=== PATIENT | female | born 2000 | race American Indian/Alaskan Native ===

== ENCOUNTER 2022-11-17 20:18 | Emergency (ER) | payer OTHER, MEDICAID, SELFPAY ==
[2022-11-17 20:33] VITALS: BP 133/98; PULSE 96; RESP 18; TEMP 37; O2SAT 100; BMI 35.2
--- NOTE | 2022-11-17 20:39 | DI.CT.S_ITS ---
PROCEDURE: CT SOFT TISSUE NECK W CON INDICATIONS: sore throat, swelling pain, known strep much worse, can't swallow TECHNIQUE: After the administration of intravenous contrast, 3.0 mm axial sections acquired from the sella to the aortic arch. Additional oblique axial 3.0 mm sections acquired through the pharynx. 3 mm thick coronal and sagittal reformats were generated. For radiation dose reduction, the following was used: automated exposure control. COMPARISON: None. FINDINGS: Image quality: Excellent. Lymph nodes: No enlarged lymph nodes seen throughout the neck. Vessels: Visualized vasculature appears patent. Neck spaces: The oropharynx, nasopharynx, and pharynx demonstrate no mucosal lesions. The vocal cords, false vocal cords, pyriform sinuses, epiglottis, vallecula, and tongue base all appear normal. Extramucosal spaces appear unremarkable except for symmetric prominence of the tonsillar pillars bilaterally, without adjacent or internal abscess. Glands: The parotid and submandibular glands appear normal. Thyroid gland appears normal. Miscellaneous: Visualized brain and orbits appear normal. Lung apices appear clear. Superficial soft tissues appear normal. Bones: No suspicious bony lesions. Visualized sinuses and mastoids appear unremarkable. IMPRESSION: Inflammatory enlargement of the tonsillar pillars bilaterally without visualized evidence of abscess formation or adenopathy. Dictated by: Luis Armando Jose M.D. on 11/17/2022 at 21:24 Approved by: Luis Armando Jose M.D. on 11/17/2022 at 21:26
--- NOTE | 2022-11-17 20:49 | ED.GENADULT ---
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 She had been diagnosed with strep a few days ago and has been on penicillin, however she presents today because of increasing throat pain and swelling along with voice change, difficulty swallowing and even trouble breathing. She denies any fever but has had some chills. She feels somewhat dizzy and lightheaded and states she is not been able to eat and drink much. She denies any chance of being Related Data Previous Rx's Medication Instructions Recorded ketorolac 10 mg tablet 10 mg PO Q6H PRN pain #14 tabs 11/17/22 Allergies Allergy/AdvReac Type Severity Reaction Status Date / Time No Known Drug Allergies Allergy Verified 11/17/22 20:33 Review of Systems Review of Systems Narrative: GENERAL: See HPI HEENT: See HPI RESPIRATORY: See HPI CARDIOVASCULAR: Denies chest pain, palpitations, orthopnea, edema, GASTROINTESTINAL: Denies nausea, vomiting, abdominal pain, diarrhea, constipation, melena. : Denies dysuria, frequency, incontinence, hematuria, urinary retention. MUSCULOSKELETAL: denies weakness, joint pain, or bony pain SKIN: Denies rash, skin lesions, or other NEUROLOGIC: Denies weakness, headache, numbness, change in speech, confusion, seizures, incoordination. PSYCHIATRIC: No concerning psychosocial issues. 12 point review of systems is negative except for those stated above Patient History Social History Smoking Status: Current every day smoker Smoking Status: Current every day smoker tobacco type: vaping Substance Use Type: marijuana Exam Narrative Exam Narrative: GENERAL: [21] year old patient appears stated age. Well-developed patient, in mild distress. Some voice change noted, somewhat muffled HEAD: Atraumatic. Normocephalic. EYES: Pupils equal round and reactive. Extraocular motions intact. No scleral icterus. No injection or drainage. ENT: Nose without bleeding, purulent drainage. Large, erythematous tonsils are touching, with some exudate, airway is patent, patient guarding airway and controlling secretions, tender anterior lymphadenopathy, no pointed uvula or obvious sign of abscess NECK: Trachea midline. Non tender CARDIOVASCULAR: Regular rate and rhythm without murmurs, gallops, or rubs. RESPIRATORY: Clear to auscultation. Breath sounds equal bilaterally. No wheezes, rales, or rhonchi. GASTROINTESTINAL: Abdomen soft, non-tender, nondistended. EXTREMITIES: No edema or joint tenderness. BACK: Nontender without deformity or crepitance. No flank tenderness. NEURO: AOx3. SKIN: No rash or erythema of visible areas Initial Vital Signs Initial Vital Signs: Vital Signs Temperature 98.6 F 11/17/22 20:33 Pulse Rate 96 H 11/17/22 20:33 Respiratory Rate 18 11/17/22 20:33 Blood Pressure 133/98 H 11/17/22 20:33 Pulse Oximetry 100 11/17/22 20:33 Oxygen Delivery Method Room Air 11/17/22 20:33 Course Orders Ordered: ED Orders 11/17/22 20:39 CT soft tissue neck w con Stat 11/17/22 20:45 BMP [Basic Metabolic Panel] Stat CBC Auto Diff [Complete Blood Count AUTO DIFF] Stat Lactate (Lactic Acid) Stat Monotest Stat 11/17/22 21:19 Blood Culture Stat Discontinued Medications Lactated Ringer's (Lactated Ringers) 1,000 mls @ 1,000 mls/hr IV BOLUS ONE Stop: 11/17/22 21:38 Last Infusion: 11/17/22 22:20 Dose: 0 mls/hr Documented By: Admin: 11/17/22 21:09 Dose: 1,000 mls/hr Documented By: ARELI Dexamethasone 20 mg/ Sodium (Chloride) 52 mls @ 208 mls/hr IV NOW ONE Stop: 11/17/22 20:40 Last Infusion: 11/17/22 22:07 Dose: 0 mls/hr Documented By: Admin: 11/17/22 21:03 Dose: 208 mls/hr Documented By: ARELI Ampicillin Sodium/Sulbactam (Sodium 3 gm/ Sodium Chloride) 100 mls @ 200 mls/hr IV NOW ONE Stop: 11/17/22 20:40 Last Infusion: 11/17/22 22:07 Dose: 0 mls/hr Documented By: Admin: 11/17/22 21:08 Dose: 200 mls/hr Documented By: ARELI Ketorolac Tromethamine (Ketorolac 30 Mg/Ml Vial) 15 mg IV NOW ONE Stop: 11/17/22 20:40 Last Admin: 11/17/22 21:06 Dose: 15 mg Documented By: ARELI Vital Signs Vital signs: Vital Signs - 8 hr 11/17/22 20:33 11/17/22 22:29 Temperature 98.6 F Pulse Rate 96 H 83 Respiratory Rate 18 16 Blood Pressure 133/98 H 127/76 Pulse Oximetry 100 99 Oxygen Delivery Method Room Air Room Air Medical Decision Making Lab Data 11/17/22 20:45 11/17/22 20:45 Labs: Lab Results 11/17/22 11/17/22 11/17/22 Range/Units 20:45 20:45 20:45 WBC 8.2 (4.5-11.0) X10^3/uL RBC 4.82 (4.0-5.2) X10^6/uL Hgb 11.8 L (12.0-16.0) g/dL Hct 35.3 L (36-46) % MCV 73.3 L (80-100) fL MCH 24.5 L (26-34) PG MCHC 33.4 (30-36) % RDW 14.3 (11.6-14.8) % Plt Count 406 H (150-400) X10^3/uL Neut % (Auto) 70.8 (50-75) % Lymph % (Auto) 18.7 L (25-40) % [place] % (Auto) 9.0 (3-14) % Eos % (Auto) 0.5 L (2-4) % Baso % (Auto) 1.0 (0-2) % Neut # (Auto) 5800 (7579-2347) /uL Lymph # (Auto) 1500 (3087-6377) /uL [place] # (Auto) 700 (0-900) /uL Eos # (Auto) 0 (0-450) /uL Baso # (Auto) 100 (0-100) /uL Sodium 136 L (137-145) mmol/L Potassium 3.8 (3.4-5.1) mmol/L Chloride 105 (98-107) mmol/L Carbon Dioxide 24 (22-32) mmol/L BUN 9 (7-17) mg/dL Creatinine 0.85 (0.52-1.04) mg/dL Estimated GFR > 60 (>60) mL/min BUN/Creatinine Ratio 10.6 (6-22) Glucose 95 (70-100) mg/dL Lactate 0.6 L (0.7-2.1) mmol/L Calcium 8.9 (8.4-10.2) mg/dL Monoscreen (Negative) 11/17/22 Range/Units 20:45 WBC (4.5-11.0) X10^3/uL RBC (4.0-5.2) X10^6/uL Hgb (12.0-16.0) g/dL Hct (36-46) % MCV (80-100) fL MCH (26-34) PG MCHC (30-36) % RDW (11.6-14.8) % Plt Count (150-400) X10^3/uL Neut % (Auto) (50-75) % Lymph % (Auto) (25-40) % [place] % (Auto) (3-14) % Eos % (Auto) (2-4) % Baso % (Auto) (0-2) % Neut # (Auto) (6643-2360) /uL Lymph # (Auto) (9435-6906) /uL [place] # (Auto) (0-900) /uL Eos # (Auto) (0-450) /uL Baso # (Auto) (0-100) /uL Sodium (137-145) mmol/L Potassium (3.4-5.1) mmol/L Chloride (98-107) mmol/L Carbon Dioxide (22-32) mmol/L BUN (7-17) mg/dL Creatinine (0.52-1.04) mg/dL Estimated GFR (>60) mL/min BUN/Creatinine Ratio (6-22) Glucose (70-100) mg/dL Lactate (0.7-2.1) mmol/L Calcium (8.4-10.2) mg/dL Monoscreen Negative (Negative) MDM Narrative Medical decision making narrative: CC: 21F with throat pain, trouble swallowing/breathing Complicating co-morbidities: known strep Data collected from: Patient Medical records reviewed: Prior notes reviewed in our EMR Differential considered, but not limited to: Strep pharyngitis, mononucleosis, abscess versus other Exam documented above, pertinent findings include: Heart rate regular, no labored breathing, controlling secretions. Large touching tonsils without obvious sign of abscess Lab Test results independently reviewed as above. Pertinent findings: No significant leukocytosis or left shift, subtle anemia, mono spot negative, electrolytes and lactate within normal Independently reviewed EKG as above Imaging studies independently reviewed: No abscess or airway occlusion Treatments: Fluids, Toradol, Decadron, Unasyn Re-evaluations: Patient feeling significant improvement Discussion: Patient with known strep pharyngitis feels like she is not getting better. She had been on a few days of penicillin with increasing pain. She is managing her airway and controlling secretions without difficulty. Labs are reassuring and alternate diagnoses such as mononucleosis versus others are considered but seem unlikely given history, physical and labs. Imaging shows no abscess or airway involvement. She is given fluids, steroids, anti-inflammatories and around of Unasyn. She is feeling much better at time of discharge, tolerating orals, no difficulty in breathing. We did discuss the possibility of switching her antibiotics but elected to hold off for now and encouraged close follow-up. She is encouraged to return for any difficulty breathing, swallowing, chest pain, shaking chills or other bothersome symptoms Disposition: see below, along with detailed discharge instructions that have been reviewed with patient as well as indications for ED re-evaluation and additional outpatient follow up Discharge Plan Departure Patient Disposition: Home Clinical Impression: Acute streptococcal pharyngitis Instructions: DI for Strep Throat Activity Restrictions/Additional Instructions: *You have been diagnosed with [strep pharyngitis, as we discussed your history and physical exam as well as labs and imaging are reassuring. There is no evidence of an alternate diagnosis such as mononucleosis or abscess noted on the imaging.] *What to do: *Please continue to take your regular medications as directed. [x ] New medication prescriptions sent to your pharmacy: [[facility] ] [ ] New medication written as a paper prescription [ ] No new medications given *Please follow up with your primary care provider in 2-3 days, call for an appointment. Let them know you were seen in the Emergency Department and that we ask that you be seen in follow up. We will electronically transmit a record of today's note if your PCP is in our system *If you do not have a primary care provider please contact the [facility] Resource line at [phone]. They will ask some questions about your medical history and help get you set up with a doctor in the community. *Return to Emergency Department if you should have any new, worsening or concerning symptoms, such as [fever greater than 101 F, shaking chills, worsening pain, persistent vomiting or other bothersome symptoms] Prescriptions: New ketorolac 10 mg tablet 10 mg PO Q6H PRN (Reason: pain) Qty: 14 0RF Referrals: Efrain Strong PA-C [Primary Care Provider] - Stand Alone Forms: Patient Portal/API
[2022-11-17 20:56] LABS: Add Manual Diff / Slide Review NO; Basophils Absolute Auto 100 /uL (0-100); Eosinophils Absolute Auto 0 /uL (0-450); Eosinophils Percent Auto 0.5 % (2-4); Hematocrit 35.3 % (36-46); Hemoglobin 11.8 g/dL (12.0-16.0); Lymphocytes Absolute Auto 1500 /uL (1100-4500); Lymphocytes Percent Auto 18.7 % (25-40); Mean Corpuscular HGB Conc 33.4 % (30-36); Mean Corpuscular Hemoglobin 24.5 PG (26-34); Mean Corpuscular Volume 73.3 fL (80-100); Monocytes Absolute Auto 700 /uL (0-900); Neutrophils Absolute Auto 5800 /uL (1500-7000); Neutrophils Percent Auto 70.8 % (50-75); Platelet Count 406 X10^3/uL (150-400); Red Blood Cell Count 4.82 X10^6/uL (4.0-5.2); Red Cell Distribution Width 14.3 % (11.6-14.8); White Blood Cell Count 8.2 X10^3/uL (4.5-11.0)
[2022-11-17 21:00] LABS: Monotest Negative (Negative)
[2022-11-17] MEDS: dexAMETHasone 20 MG in SODIUM CHLORIDE 0.9% 50 ML 208 MG IV (21:03)
[2022-11-17] MEDS: KETOROLAC 30 MG/ML VIAL 15 MG IV (21:06)
[2022-11-17] MEDS: AMPICILLIN/SULBACTAM 3 GM 3 GM in SODIUM CHLORIDE 0.9% 100 ML IV (21:08)
[2022-11-17] MEDS: LACTATED RINGERS 1,000 ML 1000 ML IV (21:09)
[2022-11-17 21:11] LABS: Lactate (Lactic Acid) 0.6 mmol/L (0.7-2.1)
[2022-11-17 21:12] LABS: BUN Creatinine Ratio 10.6 (6-22); Blood Urea Nitrogen 9 mg/dL (7-17); Calcium 8.9 mg/dL (8.4-10.2); Carbon Dioxide 24 mmol/L (22-32); Chloride 105 mmol/L (98-107); Estimated Glomerular Filt Rate > 60 mL/min (>60); Glucose 95 mg/dL (70-100); HEMOLYSIS < 15 (0-50); Potassium 3.8 mmol/L (3.4-5.1); Sodium 136 mmol/L (137-145)
[2022-11-17 22:29] VITALS: BP 127/76; PULSE 83; RESP 16; O2SAT 99
== END 2022-11-17 22:32 | disposition home or self-care (01) ==
PROVIDERS: Emergency Provider Emergency Medicine; PCP Physician Assistant
DX: J02.0 Streptococcal pharyngitis (principal)
CPT/HCPCS: 36415; 70491; 80048; 83605; 85025; 86318; 87040; 96365; 96368; 96375; 99284; J0295; J1100; J1885; Q9967

== ENCOUNTER → 2023-01-30 12:58 | Outpatient (CLI) | payer OTHER, SELFPAY ==
--- NOTE | 2023-01-30 | DI.US.S_ITS ---
PROCEDURE: US ABDOMEN COMPLETE INDICATIONS: ABDOMINAL PAIN TECHNIQUE: Real-time scanning was performed of the abdominal and retroperitoneal organs, with image documentation. COMPARISON: None. FINDINGS: Liver: Liver is normal in size. Mildly increased liver parenchymal echotexture is seen. Gallbladder: Multiple stones are noted within gallbladder lumen. A 7 millimeter stone is noted near nephric of gallbladder and is nonmobile. No gallbladder wall thickening or pericholecystic fluid. No sonographic Foley's sign. Biliary ducts: No intrahepatic biliary ductal dilatation. Extrahepatic bile duct is 5.8 mm in caliber. Normal biliary caliber is 6-7 mm or less, or 10 mm or less post-cholecystectomy. Spleen: Spleen is normal in size and homogeneous in echotexture. Pancreas: Visualized portions of the pancreas appear normal. Kidneys: Both kidneys are normal in size and echotexture. Right kidney measures 10.6 cm long; left kidney measures 11.4 cm long. No hydronephrosis or nephrolithiasis. No solid renal masses. Aorta: Visualized abdominal aorta is normal in caliber at less than 3 cm. Iliacs: Proximal common iliac arteries are normal in caliber at less than 2.5 cm. IVC: Intrahepatic inferior vena cava is patent. Miscellaneous: No free abdominal fluid. IMPRESSION: 1. Mild hepatic steatosis, no discrete hepatic lesion. 2. Cholelithiasis without sonographic evidence of acute cholecystitis. No biliary ductal dilatation. 3. Rest of the exam is unremarkable. Dictated by: Carlos Eduardo Varela M.D. on 01/30/2023 at 16:34 Approved by: Carlos Eduardo Varela M.D. on 01/30/2023 at 16:36
== END ==
PROVIDERS: PCP Physician Assistant; Referring Provider Registered Nurse; Visit Provider Registered Nurse
DX: K76.0 Fatty (change of) liver, not elsewhere classified (principal); K80.20 Calculus of gallbladder without cholecystitis without obstruction; R10.10 Upper abdominal pain, unspecified
CPT/HCPCS: 76700

== ENCOUNTER 2023-02-22 07:42 | Day surgery (SDC) | payer OTHER, SELFPAY ==
[2023-02-15 15:18] VITALS: BMI 34.3
[2023-02-22] VITALS (8 sets, daily range): BP systolic 121–150; BP diastolic 87–100; PULSE 24–66; RESP 15–22; TEMP 36.1–36.7; O2SAT 94–100; BMI 34.3
--- NOTE | 2023-02-22 | PATH_ITS ---
[facility] Accession Number: [id number] No. of containers..01 Tissue . 01 Material submitted: . gallbladder - GALLBLADDER AND CONTENTS . 01 Diagnosis: Gallbladder, Cholecystectomy: Chronic cholecystitis and cholelithiasis. Benign pericystic lymph node. Negative for dysplasia and neoplasia. MRV 03/06/2023 1649 Local . 01 Electronically signed: . Margot Diaz MD, Pathologist NPI- [id number] . 01 Gross description: . The specimen is received in formalin labeled with the patient's name, , and gallbladder and contents and consists of an intact gallbladder measuring 5.9 x 2.7 x 2.1 cm with an unremarkable external surface. The cystic duct margin is inked blue, and a pericystic lymph node candidate is identified measuring 0.6 cm in greatest dimension. The lumen contains green viscous bile and multiple pale yellow bosselated calculi measuring up to 0.6 cm in greatest dimension grossly obstructing the cystic duct. The mucosa is green and velvety with yellow discoloration and a small yellow polypoid structure, measuring 0.2 cm in greatest dimension. No additional lesions are identified. The fernando average 0.3 cm thick. Craps Manager sections to include the cystic duct margin, lymph node candidate, and full-thickness sections to include polyp are submitted in cassette A1. ([id number]) /[facility] 02/28/2023 1520 Local . 01 Pathologist provided ICD-10: K80.80 . 01 CPT . 833636 Specimen Comment: A courtesy copy of this report has been sent to [phone] Performed at: 01 [facility] [address] [place] [address] [address] [facility], [place], [place] [id number] MD Antonio Seymour MD Phone: [phone]
--- NOTE | 2023-02-22 07:44 | PM.PREOP ---
Pre-operative Note Interval Note History & Physical reviewed/Exam performed by Physician: Yes Changes to H&P: No
[2023-02-22] MEDS: LACTATED RINGERS 1,000 ML 100 ML IV ×2 (08:12→09:31)
--- NOTE | 2023-02-22 08:28 | SUR.OPER ---
Supine on padded OR bed, head on pillow, safety belt at thigh, left arm padded and tucked at side. Right arm secured on padded arm board <90 degrees abduction. Legs uncrossed. Padded footboard in place. Tape over blanket to secure lower legs.
[2023-02-22] MEDS: CEFAZOLIN 2 GM/100 ML PREMIX 100 ML IV (08:45)
[2023-02-22] MEDS: BUPIVACAINE 0.25% (PF) VIAL 30 ML INJ (09:06)
[2023-02-22] MEDS: OXYCODONE IR 5 MG TABLET PO (10:32)
[2023-02-22] MEDS: ONDANSETRON 4 MG/2 ML INJ IV (10:34)
--- NOTE | 2023-02-22 11:24 | SUR.PHASEII ---
No more pain medication administered before discharge due to drowsiness level. Patient able to sleep with current pain level 6/10.
--- NOTE | 2023-02-26 08:21 | PM.OP.1 ---
Operative Date/Time/Diagnoses Date of procedure: 02/22/23 Time of procedure: 08:21 Pre-op diagnosis: Biliary colic Post-op diagnosis: same Procedure & Clinicians Procedure: Laparoscopic cholecystectomy Same procedure as scheduled: Yes Indications: Symptoms and radiographic findings consistent with biliary colic Surgeon: Max Morse Anesthesia Type: General Operative Notes Findings: Critical view of safety established. Cholelithiasis with acute cholecystitis Specimen(s): other (Gallbladder) Estimated Blood Loss (mL): 5 Procedure in detail: The patient was placed supine on the table and bilateral lower extremity compression devices were applied. Anesthesia was induced they were intubated with an endotracheal tube and received 2g of Ancef. A time-out was performed. They were prepped and draped in sterile fashion. An infraumbilical incision was made. The fascia was elevated incised and the abdomen was entered atraumatically. A blunt tip 12mm balloon trocar was then inserted, pneumoperitoneum was established and inspection of the abdomen demonstrated no evidence of injury. They were placed head up and right side up and then a 11 mm port was placed high in the epigastrium and two 5mm in the right upper quadrant. The gallbladder was grasped by the fundus and retracted over the liver and retracted laterally by the infundibulum. Using electrocautery the lateral plane between the gallbladder and the liver was opened towards the fundus. The gallbladder was then retracted laterally and the medial plane was developed in the same manner. With the gallbladder mobilized the bottom of the cystic plate was visualized. The hepatocystic triangle was meticulosly skeletonized with blunt dissection of fat and fibrous tissue from both the front and the back. Only two structures were then clearly seen entering the gallbladder the cystic duct and the cystic artery. With the critical view of safety fully established the cystic duct was clipped twice proximally and once distally using the 10 mm Weck hemoclip applied under direct visualization and then sharply divided. The cystic artery was divided in the same fashion. The gallbladder was removed from the liver bed using electro cautery. The liver bed was then inspected for hemostasis and this was achieved. The abdomen was irrigated with sterile saline and inspection was made that showed the clips in good position. The specimen was removed using Endo-Catch. The abdomen was desufflated. The umbilical fascia was closed with 0 Vicryl in a [id number] fashion under direct visualization. Skin incisions were irrigated and closed with 4-0 Monocryl. 30 ml of 0.25% bupivacaine was infiltrated into the subcutaneous tissue of the incisions. The wounds were sealed with Dermabond. Patient emerged from anesthesia was extubated and transferred to recovery in stable condition. The sponge and instrument count at the end of the operation was correct. Post-operative Condition: stable Disposition: same day surgery
== END 2023-02-22 11:30 | disposition home or self-care (01) ==
PROVIDERS: PCP Registered Nurse; Referring Provider Surgery; Visit Provider Surgery
PROC: 0FT44ZZ Resection of Gallbladder, Percutaneous Endoscopic Approach (ICD-10-PCS; CPT 47562; principal; 2023-02-22 07:45)
DX: K80.10 Calculus of gallbladder with chronic cholecystitis without obstruction (principal)
CPT/HCPCS: 47562; 81025; J0690; J1100; J1170; J1885; J2405; J2704; J3010; J3490

== ENCOUNTER → 2024-01-03 15:21 | Outpatient (CLI) | payer SELFPAY ==
--- NOTE | 2024-01-03 | DI.RAD.S_ITS ---
PROCEDURE: XR KNEE RT 1TO2V INDICATIONS: RIGHT KNEE PAIN TECHNIQUE: 3 views of the knee were acquired. COMPARISON: [facility], , KNEE 3V RIGHT, 08/06/2017, 19:18. FINDINGS: Bones: No fractures or dislocations. No suspicious bony lesions. Soft tissues: No joint effusion. No suspicious soft tissue calcifications. IMPRESSION: No acute bony abnormality or significant effusion. Dictated by: Sajan Rose M.D. on 01/03/2024 at 16:28 Approved by: Sajan Rose M.D. on 01/03/2024 at 16:29
== END ==
PROVIDERS: PCP Registered Nurse; Referring Provider Family Medicine; Visit Provider Family Medicine
DX: M25.561 Pain in right knee (principal)
CPT/HCPCS: 73560